=== PATIENT | female | born 2000 | race Caucasian/White ===

== ENCOUNTER 2024-11-28 19:44 | Emergency (ER) | payer MEDICAID ==
[~2024-11-28] VITALS: Ht 175.3 cm; Wt 138.5 kg
[2024-11-28 19:54] VITALS: BP 132/69; PULSE 89; RESP 16; TEMP 98.6; O2SAT 97
--- NOTE | 2024-11-28 20:29 | ED.PDOC ---
GI ASSESSMENT HPI Comments This is a 23 year old female presenting to the ED with chief complaint of pelvic pain. Patient reports that she has been experiencing left pelvic pain for the past 3 days, 9/10 pain. Patient relays that movement has increased her pain. Patient states she has also had bilateral breast pain with an associated red rash to her right breast with a blister in the center. Patient denies any N/V/D, fever, chills, dysuria, or flank pain. Chief Complaint: Abdominal Pain Time Seen by MD: 20:24 Reviewed Notes: Nurses Notes, Medications, Allergies Allergies: Coded Allergies: Latex (Verified Allergy, Unknown, 11/28/24) Home Meds Active Scripts Clindamycin Hcl (Clindamycin Hcl) 300 Mg Cap, 1 CAP PO BID, #14 CAP Prov:GENESIS SANTOS MD 11/28/24 Information Source: Patient Mode of Arrival: Ambulatory Timing: Days Duration: Since onset Prehospital treatment: None Quality: Sharp Vomitus: None Stool: Normal Severity: Moderate Recent: None Pain Location: Suprapubic Modifying Factors: Movement Associated sign and symptoms: Abdominal Pain Past Medical History PAST MEDICAL HISTORY: Denies Surgical History: Cholecystectomy, , 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 Family History Family History: Reviewed,noncontributory to illness, Family hx of Cancer, Family hx of heart aroldo Social History Smoker: Cigarettes, Less Than 1 Pack/Day Alcohol: Denies ETOH Use Drugs: Denies Drug Use Lives In: Home Constitutional: denies: chills, diaphoresis, fatigue, fever, malaise, sweats, weakness, others EENTM: denies: blurred vision, double vision, ear bleeding, ear discharge, ear drainage, ear pain, ear ringing, eye pain, eye redness, hearing loss, mouth pain, mouth swelling, nasal discharge, nose bleeding, nose congestion, nose pain, photophobia, tearing, throat pain, throat swelling, voice changes, others Respiratory: denies: cough, hemoptysis, orthopnea, SOB at rest, shortness of breath, SOB with excertion, stridor, wheezing, others Cardiovascular: denies: chest pain, dizzy spells, diaphoresis, Dyspnea on exertion, edema, irregular heart beat, left arm pain, lightheadedness, palpitations, PND, syncope, others Gastrointestinal: reports: abdominal pain; denies: abdomen distended, blood streaked bowels, constipated, diarrhea, dysphagia, difficulty swallowing, hematemesis, melena, nausea, poor appetite, poor fluid intake, rectal bleeding, rectal pain, vomiting, others Genitourinary: denies: abnormal vagina bleeding, burning, dyspareunia, dysuria, flank pain, frequency, hematuria, incontinence, pain, , vagina discharge, urgency, others Neurological: denies: dizziness, fainting, headache, left sided numbness, left sided weakness, numbness, paresthesia, pre-existing deficit, right sided numbness, right sided weakness, seizure, speech problems, tingling, tremors, weakness, others Musculoskeletal: reports: others (Bilateral breast pain); denies: back pain, gout, joint pain, joint swelling, muscle pain, muscle stiffness, neck pain Integumetry: reports: rash; denies: bruises, change in color, change in hair/nails, dryness, laceration, lesions, lumps, wounds, others Allergic/Immunocompromised: denies: Difficulty Healing, Frequent Infections, Hives, Itching, others Hematologic/Lymphatic: denies: anemia, blood clots, easy bleeding, easy bruising, swollen glands, others Endocrine: denies: excessive hunger, excessive sweating, excessive thirst, excessive urination, flushing, intolerance to cold, intolerance to heat, unexplained weight gain, unexplained weight loss, others Psychiatric: denies: anxiety, bipolar disorder, depression, hopeless, panic disorder, schizophrenia, sleepless, suicidal, others All Other Systems: Reviewed and Negative Physical Exam General Appearance: Mild Distress, Obese HEENT: Normal ENT Inspection, Pharynx Normal, TMs Normal Neck: Full Range of Motion, Non-Tender, Normal, Normal Inspection Respiratory: Chest Non-Tender, Lungs Clear, No Accessory Muscle Use, No Respiratory Distress, Normal Breath Sounds Cardiovascular: No Edema, No JVD, No Murmur, No Gallop, Normal Peripheral Pulses, Regular Rate/Rhythm Breast Exam: Other (Redness to the anterior breasts bilaterally consistent with cellulitis) Gastrointestinal: No Organomegaly, Non Tender, No Pulsatile Mass, Normal Bowel Sounds, Soft Genitalia: Deferred Pelvic: Deferred Rectal: Deferred Extremities: No calf tenderness, Normal capillary refill, Normal inspection, Normal range of motion, Non-tender, No pedal edema Musculoskeletal : Apperance: Normal Neurologic: Alert, bill recapitulation clerk II-XII nml as Tested, No Motor Deficits, Normal Affect, Normal Mood, No Sensory Deficits Cerebellar Function: Normal Reflexes: Normal Skin: Dry, Normal Color, Warm Lymphatic: No Adenopathy Was a procedure done? Was a procedure done?: No GI differential Dx Differential Diagnosis: Gastritis/PUD, Gastroenteritis, Other (Cellulitis, ovarian cyst) X-Ray, Labs, Meds, VS Vital Signs Date Time Temp Pulse Resp B/P (MAP) Pulse Ox O2 Delivery O2 Flow Rate FiO2 11/28/24 19:54 98.6 89 16 132/69 97 98.6 Lab Test 11/28/24 20:09 Range/Units Urine Color Pending Urine Clarity Pending Urine pH Pending Urine Specific [place] Pending Urine Protein Pending Urine Ketones Pending Urine Blood Pending Urine Nitrite Pending Urine Bilirubin Pending Urine Urobilinogen Pending Urine Leukocyte Esterase Pending Urine RBC Pending Urine Microscopic WBC Pending Urine Squamous Epithelial Cells Pending Urine Bacteria Pending Urine Glucose Pending The patient was given clindamycin for the breast cellulitis The patient is to follow up with the primary care doctor after the ultrasound shows: IMPRESSION: 1. Question left ovarian cyst measuring up to 2.6 cm with mildly thick rind. 2. No suspicious internal features. At this time, the patient is being discharged The patient will return to the emergency department's condition worsens. Images Reviewed?: Images reviewed and evaluated by me Time of 1ST Reevaluation: 21:20 Reevaluation 1ST: Improved Patient Education/Counseling: Diagnosis, Treatment, Prognosis, Need For Follow Up Family Education/Counseling: No Family Present SEPSIS Sepsis Screen Date sepsis recognized/suspect: Nov 28, 2024 Time Sepsis recognized/suspect: 1953 Recent Procedure: No On Antibiotic Therapy: No Respiratory Rate >20: No Heart Rate >90: No Temp<36 C (96.8 F) or >38.3 C: No SBP <90 or MAP <65 mmHG: No New Acute Mental Status Change: No Is the patient on CPAP, BIPAP,: No Physician Orders Complete Blood Count (11/28/24 20:25) Urinalysis (11/28/24 20:25) Basic Metabolic Panel (11/28/24 20:25) Pelvic (11/28/24 20:25) Vital Signs Date Time Temp Pulse Resp B/P (MAP) Pulse Ox O2 Delivery O2 Flow Rate FiO2 11/28/24 19:54 98.6 89 16 132/69 97 98.6 Departure 1 Departure Time of Disposition: 21:20 Impression: Primary Impression: Cellulitis of breast Additional Impression: Left ovarian cyst Disposition: HOME / SELF CARE / HOMELESS Condition: Fair e-Prescriptions Clindamycin Hcl (Clindamycin Hcl) 300 Mg Cap 1 CAP PO BID, #14 CAP Prov: GENESIS SANTOS MD 11/28/24 Discharged With: Self Critical Care Note Critical Care Time?: No Stability Stability form required: No Heart Score Heart Score: Heart Score Response (Comments) Value History N/A 0 EKG N/A 0 Age N/A 0 Risk Factors N/A 0 Troponin N/A 0 Total 0 I personally scribed for GENESIS SANTOS MD ([email or web address]) on 11/28/24 at 20:28. Electronically submitted by Misbah Turner ([email or web address]). GENESIS SANTOS MD Nov 28, 2024 20:28
--- NOTE | 2024-11-28 21:00 | DVH ---
EXAM: US PELVIC HISTORY: llq pain COMPARISON: None TECHNIQUE: Transabdominal and transvaginal imaging was utilized. Grayscale and color doppler evaluati on. Images were stored in the patient's permanent medical record. FINDINGS: UTERUS: 9.4 x 3.6 x 6.1 cm. Endometrial stripe: 0.6 cm. Anteverted uterus. RIGHT OVARY: 2.6 x 3.3 x 2.4 cm.Normal vascularity. No suspicious masses or cysts. LEFT OVARY: 3.4 x 3.7 x 3.1 cm. Normal vascularity. Question left ovarian cysts measuring 2.6 cm. Mil dly thick rind. No suspicious internal features. OTHER: No free fluid is identified. IMPRESSION: 1. Question left ovarian cyst measuring up to 2.6 cm with mildly thick rind. 2. No suspicious internal features. 3. Consider follow-up pelvic ultrasound in 6-12 weeks to assess for resolution.
[2024-11-28] MEDS ORDERED: CLIN1CAP70 PO (21:13)
[2024-11-28 21:21] LABS: Urine Amorphous Crystal FEW /hpf (None Seen); Urine Protein, UAD Negative (Negative)
[2024-11-28 21:54] LABS: Hematocrit 43.5 % (36.0-46.0); Hemoglobin 14.7 g/dL (12.2-16.2); Mean Corpuscular Hemoglobin 29.5 pg (28.0-32.0); Mean Corpuscular Volume 87.1 fL (80.0-100.0); Nucleated Red Blood Cells % 0.0 %
[2024-11-28 21:57] LABS: Potassium 4.0 mmol/L (3.5-5.1); Sodium 142 mmol/L (136-145)
[2024-11-28 21:58] LABS: Anion Gap 9 (5-15); Calcium 8.8 mg/dL (8.7-10.4); Carbon Dioxide 22 mmol/L (20-31)
[2024-11-28 22:03] LABS: BUN/Creatinine Ratio 7.1 (10.0-20.0); Glucose 97 mg/dL (74-106)
[2024-11-28 22:05] LABS: Blood Urea Nitrogen 6 mg/dL (9-23); Chloride 111 mmol/L (98-107)
== END 2024-11-29 00:54 | disposition home or self-care (01) ==
LOC: ER 19:44
DX: R10.2 Pelvic and perineal pain (principal); N61.0 Mastitis without abscess; N83.202 Unspecified ovarian cyst, left side; F17.210 Nicotine dependence, cigarettes, uncomplicated; Z98.51 Tubal ligation status; Z90.49 Acquired absence of other specified parts of digestive tract; Z91.040 Latex allergy status; Z79.899 Other long term (current) drug therapy
CPT/HCPCS: 36415; 76856; 80048; 81001; 85025